=== PATIENT | female | born 1960 | race Caucasian/White ===

== ENCOUNTER 2018-11-25 07:52 | Day surgery (SDC) | payer OTHER, BC ==
[~2018-11-25] VITALS: Ht 170.2 cm; Wt 71.0 kg
[2018-11-25 08:12] VITALS: BP 123/84
[2018-11-25] MEDS ORDERED: LACTATED RINGERS 1,000 ML IV SCH (08:19)
[2018-11-25] MEDS ORDERED: PLEASE ENTER ALLERGIES MC SCH (08:30)
[2018-11-25] MEDS ORDERED: PLEASE ENTER HEIGHT AND WEIGHT MC SCH (08:30)
[2018-11-25] MEDS ORDERED: ZOLP-413 PO (08:43)
[2018-11-25] MEDS ORDERED: PROPOFOL 10 MG/ML, 20ML ONE (09:38)
== END 2018-11-25 11:55 | disposition home or self-care (01) ==
LOC: OUT 07:52
PROVIDERS: ATTEND Internal Medicine Geriatric Medicine
DX: Z08 Encounter for follow-up examination after completed treatment for malignant neoplasm (principal); Z98.0 Intestinal bypass and anastomosis status; K63.89 Other specified diseases of intestine; Z85.038 Personal history of other malignant neoplasm of large intestine; Z86.718 Personal history of other venous thrombosis and embolism
CPT/HCPCS: 45391; J2704; J7120